=== PATIENT | male | born 1950 | race Caucasian/White ===

== ENCOUNTER → 2025-07-27 | Outpatient (CLI) | payer MEDICARE, OTHER ==
[~2025-07-27] MED LIST: ATOR10 PO; ZOLP10 PO
== END ==
LOC: LAB SHORT 17:28 → LAB 17:28
DX: J47.9 Bronchiectasis, uncomplicated (principal)
CPT/HCPCS: 87102; 87106; 87186; 87206

== ENCOUNTER → 2025-07-31 | Outpatient (CLI) | payer MEDICARE, OTHER | LOC: LAB 14:55 → LAB SHORT 14:55 | DX: J47.9 Bronchiectasis, uncomplicated (principal) | CPT/HCPCS: 87102 ==

== ENCOUNTER → 2025-08-12 | Outpatient (CLI) | payer MEDICARE, OTHER | LOC: LAB SHORT 07:33 → LAB 07:33 | DX: C61 Malignant neoplasm of prostate (principal) | CPT/HCPCS: 88305 ==